=== PATIENT | female | born 1985 | race Caucasian/White ===

== ENCOUNTER 2021-05-01 15:55 | Emergency (ER) | payer MEDICARE, MEDICAID ==
[~2021-05-01] VITALS: Ht 170.2 cm; Wt 104.5 kg
[~2021-05-01 15:55] MED LIST: CYCL-394 PO; DOCU-91; FLUO10CA66 PO; LURA120T PO; [UNRECOGNIZED DRUG - OTHER]
[2021-05-01 17:03] LABS: BASOPHILS # (AUTO) 0.1 X10'3 (0-0.2); BASOPHILS % (AUTO) 1.3 % (0-1); EOSINOPHILS # (AUTO) 0.1 X10'3 (0-0.9); EOSINOPHILS % (AUTO) 1.3 % (0-6); HEMATOCRIT 41.3 % (35.0-45.0); HEMOGLOBIN 13.6 g/dl (12.0-16.0); LYMPHOCYTES # (AUTO) 1.3 X10'3 (1.1-4.8); LYMPHOCYTES % (AUTO) 29.5 % (21-51); MEAN CORPUSCULAR HEMOGLOBIN 29.6 PG (27.0-31.0); MEAN CORPUSCULAR VOLUME 89.9 FL (78-98); MEAN PLATELET VOLUME 8.8 FL (7.4-10.4); MONOCYTES # (AUTO) 0.5 X10'3 (0-0.9); MONOCYTES % (AUTO) 11.7 % (2-12); NEUTROPHILS # (AUTO) 2.5 X10'3 (1.8-7.7); NEUTROPHILS % (AUTO) 56.2 % (42-75); PLATELET COUNT 294 X10'3 (140-440); RED CELL DISTRIBUTION WIDTH 14.5 % (11.5-14.5); WHITE BLOOD COUNT 4.5 X10'3 (4.5-11.0)
[2021-05-01 17:12] LABS: APTT 27 SECONDS (22-32)
[2021-05-01 17:14] LABS: ALANINE AMINOTRANSFERASE 86 U/L (12-78); ALBUMIN 3.5 G/DL (3.4-5.0); ALBUMIN/GLOBULIN RATIO 0.9 (1.1-1.5); ALKALINE PHOSPHATASE 85 IU/L (46-116); ANION GAP 5 (8-16); ASPARTATE AMINO TRANSFERASE 33 U/L (10-37); BILIRUBIN,TOTAL 0.1 MG/DL (0.1-1.0); BLOOD UREA NITROGEN 16 MG/DL (7-18); BUN/CREATININE RATIO 18.4 (6.6-38.0); CALCIUM 9.5 MG/DL (8.5-10.1); CHLORIDE 103 MMOL/L (99-107); CREATININE 0.87 MG/DL (0.40-0.90); GLUCOSE 103 MG/DL (70-104); POTASSIUM 4.1 MMOL/L (3.5-5.1); SODIUM 140 MMOL/L (135-145); TOTAL PROTEIN 7.5 G/DL (6.4-8.2); eGFR 74 ML/MIN
[2021-05-01 17:17] LABS: URINE HCG NEGATIVE (NEG)
[2021-05-01 17:26] LABS: CLARITY,URINE CLEAR (Clear); COLOR,URINE YELLOW (Yellow); GLUCOSE, URINE NEGATIVE (Neg); KETONES,URINE TRACE mg/dl (Neg); LEUKOCYTE ESTERASE ,URINE NEGATIVE (Neg); NITRITES, URINE NEGATIVE (Neg); OCCULT BLOOD,URINE NEGATIVE (Neg); PROTEIN,URINE NEGATIVE (Neg); UROBILINOGEN,URINE 0.2 E.U/dL (0.2-1.0)
[2021-05-01 17:38] LABS: UA COLLECTION TYPE CLN CATCH MIDSTREAM
--- NOTE | 2021-05-01 20:58 | NUR ---
ULTRASOUND PAGED AT 2100
--- NOTE | 2021-05-01 21:08 | NUR ---
US AT BEDSIDE
[2021-05-01 22:28] VITALS: BP 108/72
== END 2021-05-01 22:29 | disposition home or self-care (01) ==
LOC: ER 15:56
DX: N93.8 Other specified abnormal uterine and vaginal bleeding (principal); R10.2 Pelvic and perineal pain; R42 Dizziness and giddiness; F17.200 Nicotine dependence, unspecified, uncomplicated; F15.90 Other stimulant use, unspecified, uncomplicated; Z98.890 Other specified postprocedural states; Z72.89 Other problems related to lifestyle; Z88.1 Allergy status to other antibiotic agents; Z79.899 Other long term (current) drug therapy
CPT/HCPCS: 36415; 76830; 76856; 80053; 81003; 81025; 85025; 85610; 85730; 93976; 99284

== ENCOUNTER 2021-05-07 11:51 | Emergency (ER) | payer MEDICARE, MEDICAID ==
[~2021-05-07] VITALS: Ht 170.2 cm; Wt 105.9 kg
[2021-05-07 13:09] LABS: BASOPHILS # (AUTO) 0.1 X10'3 (0-0.2); BASOPHILS % (AUTO) 1.2 % (0-1); EOSINOPHILS # (AUTO) 0.1 X10'3 (0-0.9); EOSINOPHILS % (AUTO) 1.6 % (0-6); HEMOGLOBIN 12.9 g/dl (12.0-16.0); LYMPHOCYTES % (AUTO) 21.9 % (21-51); MEAN CORPUSCULAR HEMOGLOBIN 29.5 PG (27.0-31.0); MEAN CORPUSCULAR HGB CONC 33.2 g/dL (33.0-36.5); MEAN PLATELET VOLUME 8.4 FL (7.4-10.4); MONOCYTES # (AUTO) 0.3 X10'3 (0-0.9); MONOCYTES % (AUTO) 6.8 % (2-12); NEUTROPHILS # (AUTO) 3.3 X10'3 (1.8-7.7); NEUTROPHILS % (AUTO) 68.5 % (42-75); PLATELET COUNT 306 X10'3 (140-440); RED BLOOD COUNT 4.38 X10'6 (4.20-5.60); RED CELL DISTRIBUTION WIDTH 14.3 % (11.5-14.5); WHITE BLOOD COUNT 4.8 X10'3 (4.5-11.0)
[2021-05-07 13:22] LABS: ALANINE AMINOTRANSFERASE 59 U/L (12-78); ALBUMIN 3.2 G/DL (3.4-5.0); ALBUMIN/GLOBULIN RATIO 0.8 (1.1-1.5); ALKALINE PHOSPHATASE 89 IU/L (46-116); ANION GAP 8 (8-16); ASPARTATE AMINO TRANSFERASE 29 U/L (10-37); BILIRUBIN,TOTAL 0.2 MG/DL (0.1-1.0); BLOOD UREA NITROGEN 20 MG/DL (7-18); BUN/CREATININE RATIO 18.2 (6.6-38.0); CALCIUM 8.7 MG/DL (8.5-10.1); CHLORIDE 105 MMOL/L (99-107); ETHANOL < 0.010 GM/DL (0.0-0.010); GLUCOSE 122 MG/DL (70-104); SODIUM 140 MMOL/L (135-145); TOTAL PROTEIN 7.1 G/DL (6.4-8.2); eGFR 57 ML/MIN
[2021-05-07 13:32] LABS: URINE HCG NEGATIVE (NEG)
[2021-05-07 13:34] LABS: CLARITY,URINE CLOUDY (Clear); COLOR,URINE YELLOW (Yellow); GLUCOSE, URINE NEGATIVE (Neg); KETONES,URINE 15 mg/dl (Neg); LEUKOCYTE ESTERASE ,URINE NEGATIVE (Neg); NITRITES, URINE NEGATIVE (Neg); OCCULT BLOOD,URINE NEGATIVE (Neg); PH,URINE 5.5 (4.8-8.0); PROTEIN,URINE NEGATIVE (Neg); UROBILINOGEN,URINE 0.2 E.U/dL (0.2-1.0)
[2021-05-07 13:35] LABS: UA COLLECTION TYPE CLN CATCH MIDSTREAM
[2021-05-07 13:37] LABS: URINE AMPHETAMINE SCREEN NEGATIVE (Neg); URINE BARBITUATE SCREEN NEGATIVE (Neg); URINE BENZODIAZEPINES SCREEN POSITIVE (Neg); URINE CANNABINOID SCREEN NEGATIVE (Neg); URINE COCAINE SCREEN NEGATIVE (Neg); URINE METHADONE SCREEN NEGATIVE (Neg); URINE OPIATE SCREEN NEGATIVE (Neg); URINE PHENCYCLIDINE SCREEN NEGATIVE (Neg)
[2021-05-07 13:40] LABS: MUCUS STRANDS MANY /LPF (Neg); SQUAMOUS EPITHELIAL CELL,UR MANY /LPF (FEW)
[2021-05-07 13:41] LABS: BACTERIA,URINE 1+ /HPF (Neg); WBC,URINE 0-4 /HPF (0-4)
--- NOTE | 2021-05-07 14:35 | NUR ---
Pt brought to bed 21 from ED bed 15
--- NOTE | 2021-05-07 15:41 | NUR ---
PACKET FAXED TO [facility]
--- NOTE | 2021-05-07 16:20 | NUR ---
Pt being seen by [facility] worker
[2021-05-07] MEDS ORDERED: nicotine 21mg patch - 24 hr TD ONE (16:55)
[2021-05-07] MEDS ORDERED: LORazepam 1 MG tablet PO ONE (16:55)
--- NOTE | 2021-05-07 18:56 | NUR ---
The patient is resting on her bed and had eaten 100% of her evening meal. She stated that currently she has not experiencing any A/V hallucinations. She did state that she is having mood lability and that she has been getting "really agitated really quick" THe patient was able to give a list of her medications but not the doses.
[2021-05-07] MEDS ORDERED: FLUO-12 PO (19:01)
[2021-05-07] MEDS ORDERED: BUPR100T5 PO (19:02)
[2021-05-07] MEDS ORDERED: HYDR25TA5 PO (19:05)
[2021-05-07] MEDS ORDERED: GABA300C PO (19:05)
[2021-05-07] MEDS ORDERED: NAPR-1144 PO (19:05)
[2021-05-07] MEDS ORDERED: PROP10TA10 PO (19:05)
[2021-05-07] MEDS ORDERED: HYDR-3686 PO (19:05)
[2021-05-07] MEDS ORDERED: olanzapine 10mg tablet PO PRN (19:35)
[2021-05-07] MEDS ORDERED: naproxen 500mg tablet PO PRN (20:00)
[2021-05-07] MEDS: hydrOXYzine 25 MG tablet PO PRN (20:27)
[2021-05-07] MEDS: OLANZAPINE 5 MG TABLET PO PRN (20:27)
[2021-05-07] MEDS: gabapentin 300mg capsule PO SCH (20:27)
[2021-05-07] MEDS: propranolol 10mg tablet PO SCH (20:27)
--- NOTE | 2021-05-07 20:40 | NUR ---
The patient is resting on her bed. She is cooperative but appears anxious. Zyprexa given
--- NOTE | 2021-05-07 22:21 | NUR ---
THe patient appears to be sleeping
--- NOTE | 2021-05-08 00:36 | NUR ---
The patient appears to be sleeping
--- NOTE | 2021-05-08 02:35 | NUR ---
THe patient appears to be sleeping
--- NOTE | 2021-05-08 04:19 | NUR ---
The patient appears to be sleeping
--- NOTE | 2021-05-08 05:05 | NUR ---
Client resting on right side. Resp even and unlabored.
--- NOTE | 2021-05-08 06:38 | NUR ---
Patient sleeping on left side. No distress observed. Continue to monitor.
--- NOTE | 2021-05-08 08:22 | NUR ---
Patient eating breakfast. No distress observed. Continue to monitor.
[2021-05-08] MEDS: buPROPion SR 100mg tab PO SCH (08:50)
[2021-05-08] MEDS: propranolol 10mg tablet PO SCH ×3 (08:51→20:25)
[2021-05-08] MEDS: HYDROchlorothiazide 25mg tablet PO SCH (08:51)
[2021-05-08] MEDS: gabapentin 300mg capsule PO SCH ×2 (08:51→20:25)
[2021-05-08] MEDS: FLUoxetine 20mg capsule PO SCH (08:51)
--- NOTE | 2021-05-08 10:11 | NUR ---
Patient reclining in bed. No distress observd. Continue to monitor.
--- NOTE | 2021-05-08 10:50 | NUR ---
Patient moved to bed 25. No distress observed. Continue to monitor.
--- NOTE | 2021-05-08 12:15 | NUR ---
Patient eating breakfast. No distress observed. Continue to monitor.
--- NOTE | 2021-05-08 14:04 | NUR ---
Patient ambulatory to [facility]. No distress observed. RN also just gave patient crackers as requested. Continue to monitor.
--- NOTE | 2021-05-08 15:40 | NUR ---
Patient is wanting a Nicotine patch. Will get the order. Patient calm. No distress observed. Continue to monitor.
[2021-05-08] MEDS: nicotine 21mg patch - 24 hr TD SCH (16:18)
[2021-05-08] MEDS ORDERED: nicotine 14mg patch - 24hr TD ONE (16:35)
[2021-05-08] MEDS: OLANZAPINE 5 MG TABLET PO PRN (17:03)
[2021-05-08] MEDS: hydrOXYzine 25 MG tablet PO PRN (17:03)
--- NOTE | 2021-05-08 17:08 | NUR ---
Patient is anxious and rocking back and forth. RN gave her Zyprexa and Atarax to help calm her down. Continue to monitor.
--- NOTE | 2021-05-08 18:17 | NUR ---
Patient eating dinner. No distress observed. Continue to monitor.
--- NOTE | 2021-05-08 20:37 | NUR ---
Patient was sleeping and RN awoke patient and gave her her meds. Patient denies suicidal and homicidal ideation. Patient denies chriss/visual hallucinations. Patient rolled over and went back to sleep.
--- NOTE | 2021-05-08 23:03 | NUR ---
The patient appears to be sleeping
--- NOTE | 2021-05-09 01:10 | NUR ---
The patient appears to be sleeping
--- NOTE | 2021-05-09 03:01 | NUR ---
The patient appears to be sleeping
--- NOTE | 2021-05-09 04:45 | NUR ---
The patient appears to be sleeping
--- NOTE | 2021-05-09 06:40 | NUR ---
Patient sleeping on right side. No distress observed. Continue to monitor.
--- NOTE | 2021-05-09 08:36 | NUR ---
Patient eating breakfast. RN spoke to patient who states she is feeling worse just sitting here and not getting any help. RN explained the process but patient is starting to feel anxious. Patient does not need medication yet. Continue to monitor.
[2021-05-09] MEDS: FLUoxetine 20mg capsule PO SCH (08:38)
[2021-05-09] MEDS: HYDROchlorothiazide 25mg tablet PO SCH (08:38)
[2021-05-09] MEDS: gabapentin 300mg capsule PO SCH ×2 (08:38→20:04)
[2021-05-09] MEDS: buPROPion SR 100mg tab PO SCH (08:39)
[2021-05-09] MEDS: propranolol 10mg tablet PO SCH ×3 (08:39→20:04)
[2021-05-09] MEDS: nicotine 21mg patch - 24 hr TD SCH (08:41)
[2021-05-09] MEDS: hydrOXYzine 25 MG tablet PO PRN ×2 (10:10→21:26)
--- NOTE | 2021-05-09 10:15 | NUR ---
RN gave patient Atarax for anxiety. Patient pacing and talking on the phone. Patient wants to be transferred immediately. There are few beds available. Patient to be re-evaluated tomorrow. Continue to monitor.
--- NOTE | 2021-05-09 11:03 | NUR ---
Patient sitting in her room sleeping. No distress observed. Continue to monitor.
--- NOTE | 2021-05-09 12:23 | NUR ---
Patient eating lunch. No distress observed. Continue to monitor.
--- NOTE | 2021-05-09 14:17 | NUR ---
Patient awake and laying in bed. No distress observed. Continue to monitor.
[2021-05-09] MEDS: OLANZAPINE 5 MG TABLET PO PRN (15:42)
--- NOTE | 2021-05-09 16:05 | NUR ---
Patient was pacing and talking on the phone. Now, after Zyprexa, patient is sleeping. No distress observed. Continue to monitor.
--- NOTE | 2021-05-09 19:00 | NUR ---
One to one with the patient who was alert, oriented and cooperative with the evening assessment. She has a flat affect and appears overall to be depressed and anxious. The client appears to be minimizing her symptoms. She was asked about paranoia and she stated "not really" She denied auditory or visual hallucinations. She denies thoughts to harm herself or anyone else but admits to periods of increased agitation, irritability and mood swings. She rated her anxiety as moderately high. Discussed history and medications with MD and the patient was started on BID zyprexa
[2021-05-09] MEDS ORDERED: olanzapine 10mg tablet PO SCH ×2 (20:00)
--- NOTE | 2021-05-09 21:17 | NUR ---
The patient given HS medications and she was educated to the zyprexa.
[2021-05-09] MEDS ORDERED: diphenhydrAMINE 25mg capsule PO ONE (21:25)
--- NOTE | 2021-05-09 21:29 | NUR ---
The reports that her arms feeling restless, "like my skin is crawling" Discussed with Dr. Mulligan and benadryl given and routine zyprexa decreased to 5mg BID
--- NOTE | 2021-05-09 22:40 | NUR ---
The patient appears to be sleeping
--- NOTE | 2021-05-10 00:32 | NUR ---
The patient appears to be sleeping
--- NOTE | 2021-05-10 01:58 | NUR ---
The patient appears to be sleeping
--- NOTE | 2021-05-10 03:57 | NUR ---
The patient appears to be sleeping
--- NOTE | 2021-05-10 05:02 | NUR ---
The patient appears to be sleeping
--- NOTE | 2021-05-10 07:00 | NUR ---
Received Pt in bed sleeping w/o distress.
[2021-05-10] MEDS ORDERED: olanzapine 10mg tablet PO SCH (08:00)
[2021-05-10] MEDS: FLUoxetine 20mg capsule PO SCH (08:55)
[2021-05-10] MEDS: propranolol 10mg tablet PO SCH ×3 (08:55→19:48)
[2021-05-10] MEDS: HYDROchlorothiazide 25mg tablet PO SCH (08:55)
[2021-05-10] MEDS: buPROPion SR 100mg tab PO SCH (08:55)
[2021-05-10] MEDS: gabapentin 300mg capsule PO SCH ×2 (08:55→19:48)
[2021-05-10] MEDS: OLANZAPINE 5 MG TABLET PO SCH ×2 (08:55→19:47)
--- NOTE | 2021-05-10 09:00 | NUR ---
Pt woke and took AM meds w/o issues. Pt ate breakfast and was pleasant and cooperative.
[2021-05-10] MEDS: nicotine 21mg patch - 24 hr TD SCH (09:01)
--- NOTE | 2021-05-10 11:00 | NUR ---
Pt used phone to try to make a appt. at [facility].
--- NOTE | 2021-05-10 13:00 | NUR ---
Pt ate lunch and took propranolol. Pt asking when she will be evaluated by the [facility] again and wants to go.
[2021-05-10] MEDS: hydrOXYzine 25 MG tablet PO PRN (18:49)
--- NOTE | 2021-05-10 19:02 | NUR ---
The patient was very tearful and upset about not being able to be released. She reports high anxiety. She was given a PRN medication. She denies having thoughts to harm herself or anyone else. She denies psychotic symtpoms. She does endorse mood lablility.
--- NOTE | 2021-05-10 20:10 | NUR ---
The patient was given her HS medications and she is now resting quietly on her bed.
--- NOTE | 2021-05-10 22:23 | NUR ---
The patient appears to be sleeping
--- NOTE | 2021-05-11 00:05 | NUR ---
The patient appears to be sleeping
--- NOTE | 2021-05-11 01:27 | NUR ---
The patient appears to be sleeping
--- NOTE | 2021-05-11 04:00 | NUR ---
THe patient appears to be sleeping
--- NOTE | 2021-05-11 04:53 | NUR ---
Report to Awais Peres
[2021-05-11] MEDS: buPROPion SR 100mg tab PO SCH (08:07)
[2021-05-11] MEDS: gabapentin 300mg capsule PO SCH ×2 (08:07→20:05)
[2021-05-11] MEDS: nicotine 21mg patch - 24 hr TD SCH (08:08)
[2021-05-11] MEDS: HYDROchlorothiazide 25mg tablet PO SCH (08:08)
[2021-05-11] MEDS: FLUoxetine 20mg capsule PO SCH (08:08)
[2021-05-11] MEDS: propranolol 10mg tablet PO SCH ×3 (08:08→20:06)
[2021-05-11] MEDS: OLANZAPINE 5 MG TABLET PO SCH ×2 (08:08→20:06)
--- NOTE | 2021-05-11 08:30 | NUR ---
1:1 done at bedside, Pt. denies SI/HI, A/V hallucinations. Pt. states, "I really want to leave... Do you think I can go home today?" Pt. reports a previous suicide attempt in February of 2021 by ODing on Ativan and ETOH. Pt. reports she was treated in the ER but did not go for further psychatric hospitalization.
--- NOTE | 2021-05-11 09:36 | NUR ---
Pt. awake at bedside eating breakfast. Pt. took all medications.
--- NOTE | 2021-05-11 10:30 | NUR ---
Pt. is asleep in supine position in bed. Pt. in no apparent distress.
--- NOTE | 2021-05-11 12:00 | NUR ---
Pt. is talking loudly on the phone, pacing, and crying, stating, "I'm going to lose it if I have to stay in here!". RN offered pt. PRN medication a pt. received Zyprexa 5mg po PRN along with her afternoon Inderall.
[2021-05-11] MEDS: OLANZAPINE 5 MG TABLET PO PRN (12:07)
--- NOTE | 2021-05-11 14:30 | NUR ---
Pt. is awake and pacing in front of her bed talking on the phone.
[2021-05-11] MEDS: hydrOXYzine 25 MG tablet PO PRN (15:53)
--- NOTE | 2021-05-11 16:30 | NUR ---
Pt. awake and calm, resting in bed.
--- NOTE | 2021-05-11 17:07 | NUR ---
RN did nurse to nurse with Shilpi from [facility] in [place]. RN informed that pt. was accepted b y Dr. Herrera @ [phone]. Pt. going to [address] office to set up transportation.
--- NOTE | 2021-05-11 17:24 | NUR ---
RECEIVED PHONE CALL FROM BRUCE AT [facility] OFFICE. THERE IS NO MOTOR COACH SUPERVISOR TO TRANSPORT PATIENT TO [facility]. TRANSPORT IS SCHEDULED FOR 0800 ON 05/12/20. PATIENT ACCEPTED BY DR. BENDER AND WILL BE IN UNIT B OF THE FACILITY. PHONE NUMBER FOR [facility] REPORT TOMORROW MORNING IS .
--- NOTE | 2021-05-11 21:10 | NUR ---
pt appears to be sleeping
--- NOTE | 2021-05-12 00:38 | NUR ---
pt appears to be sleeping
--- NOTE | 2021-05-12 02:38 | NUR ---
pt appears to be sleeping
--- NOTE | 2021-05-12 04:15 | NUR ---
pt appears to be sleeping
[2021-05-12 06:00] VITALS: BP 110/65
--- NOTE | 2021-05-12 06:50 | NUR ---
Pt pacing the floor around her bedside. She reports she slept well. She is glad to be going this morning at 0800 to [facility] in [place]. She denies complaints.
[2021-05-12] MEDS: OLANZAPINE 5 MG TABLET PO SCH (08:27)
[2021-05-12] MEDS: HYDROchlorothiazide 25mg tablet PO SCH (08:27)
[2021-05-12] MEDS: propranolol 10mg tablet PO SCH (08:27)
[2021-05-12] MEDS: gabapentin 300mg capsule PO SCH (08:27)
[2021-05-12] MEDS: FLUoxetine 20mg capsule PO SCH (08:27)
[2021-05-12] MEDS: buPROPion SR 100mg tab PO SCH (08:28)
[2021-05-12] MEDS: nicotine 21mg patch - 24 hr TD SCH (08:29)
== END 2021-05-12 07:37 ==
LOC: ER 11:51
DX: R45.850 Homicidal ideations (principal); Z20.822 Contact with and (suspected) exposure to COVID-19; R44.0 Auditory hallucinations; J02.9 Acute pharyngitis, unspecified; R51.9 Headache, unspecified; F12.90 Cannabis use, unspecified, uncomplicated; F15.90 Other stimulant use, unspecified, uncomplicated; F17.200 Nicotine dependence, unspecified, uncomplicated; F41.9 Anxiety disorder, unspecified; F32.9 Major depressive disorder, single episode, unspecified; Z72.89 Other problems related to lifestyle; Z98.891 History of uterine scar from previous surgery; Z79.899 Other long term (current) drug therapy; Z88.1 Allergy status to other antibiotic agents
CPT/HCPCS: 36415; 80053; 80305; 80320; 81001; 81025; 84443; 85025; 87635; 99285; C9803; Q0177

== ENCOUNTER 2022-12-11 11:24 | Emergency (ER) | payer MEDICARE, MEDICAID ==
[~2022-12-11] VITALS: Ht 170.2 cm; Wt 105.6 kg
[~2022-12-11 11:24] MED LIST changes: +BUPR100T5 PO; -CYCL-394 PO; -DOCU-91; +FLUO-12 PO; -FLUO10CA66 PO; +GABA300C PO; +HYDR-3686 PO; +HYDR25TA5 PO; -LURA120T PO; +NAPR-1144 PO; +PROP10TA10 PO; -[UNRECOGNIZED DRUG - OTHER]
[2022-12-11 11:30] VITALS: BP 120/77; PULSE 89; RESP 18; TEMP 97.7; O2SAT 99
== END 2022-12-11 13:53 | disposition left against medical advice (07) ==
LOC: ER 11:25
DX: M25.511 Pain in right shoulder (principal); Z53.21 Procedure and treatment not carried out due to patient leaving prior to being seen by health care provider
CPT/HCPCS: 99281